=== PATIENT | male | born 1980 | race Caucasian/White ===

== ENCOUNTER → 2017-01-19 | Outpatient (CLI) | payer BC ==
--- NOTE | 2017-01-19 11:05 | REP ---
LEFT ANKLE SERIES: Four views of the left ankle performed. There is no acute fracture or dislocation. Ankle mortise is anatomic. There is lateral soft tissue swelling. There appears to be a joint effusion. Rounded calcific density at the dorsal aspect of the talus may represent an accessory ossicle or old fracture. IMPRESSION: No acute fracture or dislocation. Lateral soft tissue swelling. Joint effusion. Signed by Waqas Varma MD 01/19/2017 01:47 P
== END ==
LOC: M WUC 10:33
PROVIDERS: ATTEND Physician Assistant
DX: S93.422A Sprain of deltoid ligament of left ankle, initial encounter (principal); X58.XXXA Exposure to other specified factors, initial encounter; Y93.9 Activity, unspecified; Y92.9 Unspecified place or not applicable; Y99.8 Other external cause status; M25.472 Effusion, left ankle

== ENCOUNTER → 2019-01-27 | Outpatient (CLI) | payer BC ==
--- NOTE | 2019-01-27 20:13 | REP ---
LEFT KNEE, COMPLETE: 01/27/2019. Clinical history: Lateral knee injury. Unable to straighten the leg for proper views. Findings: Five views are provided. There is no patellar subluxation or dislocation. No definite patellar subluxation or dislocation or fracture. I cannot confirm a suprapatellar effusion. The medial and lateral compartments show no joint space narrowing, loose body or fracture. There is no avulsion. Proximal tibiofibular articulation intact. Impression: 1. There is no gross fracture, joint space narrowing, subluxation, dislocation, suprapatellar effusion, loose body or osteochondral defect. 2. The patient is unable to straighten the knee. This may imply some internal derangement. Electronically Signed by Won Nunez MD 01/27/2019 08:32 P
== END ==
LOC: M WUC 19:31
PROVIDERS: ATTEND Physician Assistant
DX: M22.2X2 Patellofemoral disorders, left knee (principal)

== ENCOUNTER → 2020-09-23 | Outpatient (REF) | payer BC | LOC: M LAB REF 20:13 | PROVIDERS: ATTEND Physician Assistant | DX: J02.9 Acute pharyngitis, unspecified (principal) ==

== ENCOUNTER → 2020-12-31 | Outpatient (CLI) | payer BC ==
[2020-12-31 12:48] LABS: HEMATOCRIT 50.1 % (42.0-52.0); HEMOGLOBIN 15.9 g/dl (13.5-17.5); MEAN CORPUSCULAR HEMOGLOBIN 28.4 pg (27.0-33.0); MEAN CORPUSCULAR HGB CONC 31.7 g/dl (32.0-36.5); MEAN CORPUSCULAR VOLUME 89.5 fl (80.0-96.0); PLATELET COUNT, AUTOMATED 242 10^3/uL (150-450); WHITE BLOOD COUNT 6.9 10^3/uL (4.0-10.0)
[2020-12-31 13:22] LABS: ALBUMIN 4.4 GM/DL (3.2-5.2); ALT/SGPT 30 U/L (12-78); BILIRUBIN,TOTAL 0.6 MG/DL (0.2-1.0); BLOOD UREA NITROGEN 16 MG/DL (7-18); CARBON DIOXIDE LEVEL 30 MEQ/L (21-32); CHLORIDE LEVEL 107 MEQ/L (98-107); CHOLESTEROL LEVEL 230 MG/DL (<200); CHOLESTEROL RISK RATIO 5.111 (<5); CREATININE FOR GFR 0.94 MG/DL (0.70-1.30); GLOMERULAR FILTRATION RATE > 60.0 (>60); GLUCOSE, FASTING 75 MG/DL (70-100); HDL CHOLESTEROL 45 MG/DL (>40); LDL CHOLESTEROL 148 MG/DL (<100); NON-HDL-C 185 MG/DL; POTASSIUM SERUM 4.6 MEQ/L (3.5-5.1); SODIUM LEVEL 139 MEQ/L (136-145); TOTAL PROTEIN 7.6 GM/DL (6.4-8.2); TRIGLYCERIDES LEVEL 183 MG/DL (<150)
== END ==
LOC: M WUC 09:18
PROVIDERS: ATTEND Family Medicine
DX: Z00.00 Encounter for general adult medical examination without abnormal findings (principal); M54.2 Cervicalgia

== ENCOUNTER → 2021-09-22 | Outpatient (CLI) | payer OTHER | LOC: M PLALAB 07:36 | PROVIDERS: ATTEND Family Medicine | DX: Z01.83 Encounter for blood typing (principal) ==